=== PATIENT | female | born 1985 | race Caucasian/White ===

== ENCOUNTER → 2025-01-28 | Outpatient (REF) ==
[2025-01-28 11:18] LABS: SOFIA COVID ANTIGEN NEGATIVE (NEGATIVE)
== END ==
LOC: M EMP 10:57
PROVIDERS: ATTEND Family Medicine
DX: R09.89 Other specified symptoms and signs involving the circulatory and respiratory systems (principal)

== ENCOUNTER → 2025-02-07 | Outpatient (REF) ==
[2025-02-07 08:55] LABS: SOFIA COVID ANTIGEN NEGATIVE (NEGATIVE)
== END ==
LOC: M EMP 08:51
PROVIDERS: ATTEND Family Medicine
DX: Z20.822 Contact with and (suspected) exposure to COVID-19 (principal)

== ENCOUNTER 2025-03-21 08:19 | Emergency (ER) | payer OTHER ==
[~2025-03-21] VITALS: Ht 160 cm; Wt 83.6 kg
[2025-03-21] MEDS ORDERED: MULTTAB20 PO (08:29)
[2025-03-21 09:22] LABS: BASO # 0.0 10^3/uL (0.0-0.2); BASO % 0.5 % (0.0-1.0); EOS # 0.1 10^3/uL (0.0-0.5); EOS % 1.0 % (0.0-3.0); LYMPH # 1.4 10^3/uL (1.5-5.0); LYMPH % 21.4 % (24.0-44.0); MONO # 0.5 10^3/uL (0.0-0.8); MONO % 7.1 % (2.0-8.0); NEUTROPHILS # 4.4 10^3/uL (1.5-8.5); NEUTROPHILS % 69.5 % (36.0-66.0); PLATELET COUNT, AUTOMATED 234 10^3/uL (150-450)
[2025-03-21 09:26] LABS: KETONE, URINE AUTO RFX 1+ mg/dL (NEGATIVE); NITRITE, URINE AUTO RFX NEGATIVE (NEGATIVE); RBC, URINE AUTO RFX 2 /HPF (0-3); SQUAM EPITHELIAL CELL UR AURFX 1 /HPF (0-6)
[2025-03-21 09:27] LABS: LEUKOCYTE ESTERASE UR AUTO RFX TRACE (NEGATIVE); WBC, URINE AUTO RFX 42 /HPF (0-3)
[2025-03-21 10:01] LABS: CALCIUM LEVEL 8.5 MG/DL (8.5-10.1); CARBON DIOXIDE LEVEL 21 MMOL/L (20-31); CHLORIDE LEVEL 101 MMOL/L (98-107); CREATININE FOR GFR 0.61 MG/DL (0.55-1.30); GLOMERULAR FILTRATION RATE > 90.0 (>60); HCG, SERUM QUANTITATIVE 3770.5 MIU/ML (<4.2); POTASSIUM SERUM 4.5 MMOL/L (3.5-5.1); SODIUM LEVEL 134 MMOL/L (136-145)
[2025-03-21] MEDS: NS (Normal Saline) 0.9% 1,000 ML IV ONE (10:18)
[2025-03-21 10:30] LABS: VENOUS BASE EXCESS -3.6 (-2.0-2.0); VENOUS HCO3 20.6 MMOL/L (23.0-27.0); VENOUS O2 SATURATION 73.1 % (60.0-80.0); VENOUS PARTIAL PRESSURE CO2 35.4 mmHg (38.0-50.0); VENOUS PARTIAL PRESSURE O2 36.9 mmHg (30.0-50.0); VENOUS PH 7.382 UNITS (7.330-7.430); VENOUS STANDARD HCO3 20.8 MMOL/L; VENOUS TOTAL CO2 21.7 MMOL/L (24.0-28.0)
[2025-03-21 10:51] LABS: ESTIMATED AVERAGE GLUCOSE 283.0 MG/DL (60-110)
[2025-03-21] MEDS: HumuLIN R (REGULAR) INSULIN (NovoLIN R) **100 U/ML** PER UNIT IV ONE (10:53)
[2025-03-21 11:02] LABS: ALT/SGPT 25.0 U/L (7.0-40); AST/SGOT 16.0 U/L (<34)
[2025-03-21 11:04] LABS: ACETONE/KETONE 0.31 MMOL/L (0.02-0.27)
[2025-03-21 11:45] VITALS: BP 127/83; O2SAT 99
[2025-03-21] MEDS ORDERED: LANCMIS33 TOP (11:46)
[2025-03-21] MEDS ORDERED: GLUCMIS7 XX (11:46)
[2025-03-21 11:47] VITALS: TEMP 98
[2025-03-23] MEDS ORDERED: CEPH250T PO (07:40)
== END 2025-03-21 12:05 | disposition home or self-care (01) ==
LOC: M ED 08:19
DX: O24.111 Pre-existing type 2 diabetes mellitus, in pregnancy, first trimester (principal); E11.65 Type 2 diabetes mellitus with hyperglycemia; Z79.4 Long term (current) use of insulin; Z88.8 Allergy status to other drugs, medicaments and biological substances; Z79.899 Other long term (current) drug therapy; Z3A.01 Less than 8 weeks gestation of pregnancy
CPT/HCPCS: 76801; 80048; 80076; 81001; 82010; 82803; 83036; 83690; 84702; 85025; 86850; 86900; 86901; 87088; 87186; 96361; 96374; 99284; J1815

== ENCOUNTER → 2025-03-22 | Outpatient (REF) | payer OTHER ==
[~2025-03-22] MED LIST: CEPH250T PO; GLUCMIS7 XX; LANCMIS33 TOP; MULTTAB20 PO
[2025-03-22 14:08] LABS: TOTAL PROTEIN,RANDOM URINE < 6.0 MG/DL (0.0-14.0)
[2025-03-22 14:29] LABS: Trichomonas vaginalis (AMP) NOT DETECTED (NEGATIVE)
[2025-03-22 14:52] LABS: GC DNA AMPLIFICATION NEGATIVE (NEGATIVE)
== END ==
LOC: M SFHCWAGY 12:59
PROVIDERS: ATTEND Obstetrics & Gynecology
DX: O09.299 Supervision of pregnancy with other poor reproductive or obstetric history, unspecified trimester (principal); O09.521 Supervision of elderly multigravida, first trimester; Z3A.00 Weeks of gestation of pregnancy not specified

== ENCOUNTER → 2025-03-28 | Outpatient (REF) | payer OTHER ==
[2025-03-28 14:12] LABS: TOTAL PROTEIN,RANDOM URINE 12.4 MG/DL (0.0-14.0)
[2025-03-28 14:57] LABS: Trichomonas vaginalis (AMP) NOT DETECTED (NEGATIVE)
[2025-03-28 15:20] LABS: GC DNA AMPLIFICATION NEGATIVE (NEGATIVE)
== END ==
LOC: M SFHCWAGY 12:42
PROVIDERS: ATTEND Obstetrics & Gynecology
DX: O09.299 Supervision of pregnancy with other poor reproductive or obstetric history, unspecified trimester (principal)

== ENCOUNTER → 2025-04-05 | Outpatient (CLI) | payer OTHER ==
[2025-04-05 18:26] LABS: PLATELET COUNT, AUTOMATED 327 10^3/uL (150-450)
[2025-04-05 18:40] LABS: LDH LACTATE DEHYDROGENASE 193 U/L (120-246)
[2025-04-05 18:43] LABS: ALT/SGPT 27 U/L (7.0-40); AST/SGOT 20 U/L (<34); CREATININE FOR GFR 0.56 MG/DL (0.55-1.30); GLOMERULAR FILTRATION RATE > 90.0 (>60)
[2025-04-05 19:31] LABS: HEPATITIS C VIRUS ABY INDEX < 0.02 INDEX (<0.8); HIV 1&2 SCREEN NEGATIVE (NEGATIVE)
== END ==
LOC: M PLALAB 14:57
PROVIDERS: ATTEND Obstetrics & Gynecology
DX: O09.521 Supervision of elderly multigravida, first trimester (principal); Z3A.00 Weeks of gestation of pregnancy not specified

== ENCOUNTER → 2025-04-24 | Outpatient (CLI) | payer OTHER | LOC: M PLALAB 11:39 | PROVIDERS: ATTEND Obstetrics & Gynecology | DX: O09.521 Supervision of elderly multigravida, first trimester (principal); Z31.430 Encounter of female for testing for genetic disease carrier status for procreative management; E11.65 Type 2 diabetes mellitus with hyperglycemia; O24.111 Pre-existing type 2 diabetes mellitus, in pregnancy, first trimester; O10.011 Pre-existing essential hypertension complicating pregnancy, first trimester ==